=== PATIENT | female | born 1950 | race Caucasian/White ===

== ENCOUNTER → 2023-09-15 10:57 | Outpatient (REF) | payer OTHER, SELFPAY | LOC: WDC 10:57 | PROVIDERS: ATTENDING PHYSICIAN Obstetrics & Gynecology Gynecology; FAMILY PHYSICIAN Family Medicine | DX: Z12.31 Encounter for screening mammogram for malignant neoplasm of breast (principal) | CPT/HCPCS: 77063; 77067 ==

== ENCOUNTER 2024-07-24 10:36 | Emergency (ER) | payer OTHER, SELFPAY ==
[2024-07-24 10:47] VITALS: BP 161/99
[2024-07-24 11:34] VITALS: BMI 34.0
--- NOTE | 2024-07-24 13:33 | ED.GENMED ---
History of Present Illness
General
Chief Complaint: Rabies
Source: patient
Exam Limitations: none
Time Seen by Provider: 07/24/24 12:35
Nursing documentation reviewed up to this point in time: agreed with
History of Present Illness
History of Present Illness:
see MDM
Past History
Past History
ED Past Medical History: Other (The patient has had a retinal detachment )
ED Past Surgical History:
Review of Systems
Review of Systems
Allergies reviewed?: Yes
All Other Systems: Not applicable
Phy Exam
Physical Exam
Physical Exam:
GENERAL: Alert , in no apparent distress, comfortable at rest
HEAD: NCAT
NEUROLOGICAL: Alert and oriented, no focal neuro deficits, , 5/5 strength, sensation intact, ambulation normal
SKIN: Warm and dry, uncture wound L leg
MUSCULOSKELETAL: L lateral lower leg with mutiple puncture wounds, closed nontender, no surrounding erythema, largest 3 mm
PSYCH: Normal and appropriate interaction.
Course
Orders/Labs/Results
Orders:
Orders
07/24/24 13:31
Tetanus/Diphth/Acelpertussis [Adacel] 0.5 ml IM .ONCE ONE
Vital Signs
Initial and Last Documented VS:
Initial Vital Signs
Temp Pulse Resp BP Pulse Ox
36.7 C 90 16 161/99 98
07/24/24 10:47 07/24/24 10:47 07/24/24 10:47 07/24/24 10:47 07/24/24 10:47
Last Documented Vital Signs
Temp Pulse Resp BP Pulse Ox
36.7 C 90 16 161/99 98
07/24/24 10:47 07/24/24 10:47 07/24/24 10:47 07/24/24 10:47 07/24/24 10:47
MDM/Problems Addressed
Differential Diagnosis Includes:
see mdm
MDM/Problems Addressed:
Note:
CHIEF COMPLAINT(S)
Cat bite
HISTORY OF PRESENT ILLNESS
The patient is a 74-year-old female who presented after being bitten by a cat yesterday. The patient reports that the cat, a stray she has been feeding, previously appeared to have been bitten by another animal but was not directly witnessed by the
patient. This stray cat subsequently developed an infection and was taken to a dental office receptionist, where it received a rabies vaccination. approx 05/19/24. pt has been watching the cat since, and it has had no sign of rabies.
Yesterday, the patient allowed the cat indoors, intending to keep it overnight before getting it fixed. During this time, another cat the patient owns approached and growled, inciting stress in the stray. The patient bent down to inspect the
situation and was bitten on the hand by the stray cat on her L leg. The patient promptly washed the wound with soapy water multiple times and applied hydrogen peroxide and neosporin. She visited her family doctor, who prescribed an antibiotic,
likely Augmentin, which she has yet to crab picker from the pharmacy. She is unsure about her last tetanus shot and is seeking guidance regarding the need for rabies post-exposure prophylaxis.
since the incident, the cat has eaten and drank normally and had no change in behavior
The patient expressed concerns that the stray cat might display symptoms of rabies due to its unusual behavior but acknowledges that she hasnt observed any specific rabies signs such as foaming at the mouth or neurological issues. The provider
advised observing the cat for signs of rabies symptoms over the next few days and taking it to the dental office receptionist for possible quarantine if concerns about rabies persist. The provider reassured her about the low likelihood of rabies and recommended
continuing with antibiotics and updating her tetanus vaccination.
CHRONIC MEDICAL CONDITIONS SIGNIFICANTLY AFFECTING CARE
The patient does not report any chronic medical conditions and denies taking any medications regularly, including blood thinners.
PLAN
1. Administer tetanus toxoid booster in the Emergency Department.
2. Begin prescribed antibiotics (Augmentin) from family doctor.
3. Continue monitoring the stray cat for signs of rabies for the next few days. If rabies symptoms develop even after 10 days, seek medical evaluation.
4. Educate the patient to look for swelling, redness, drainage, or fever at the wound site and to return for further evaluation if these occur.
5. Assure the patient regarding low risk of rabies and instruct to follow up or seek further care if she notices any further concerns with the wound or the cats behavior.
DIFFERENTIAL DIAGNOSIS
The Differential Diagnosis includes, in no particular order and is not limited to:
1. Wound infection
2. Tetanus
3. Rabies
pt with a bite from a cat that she has been feeding daily
provoked bite
no other rabies symptoms
cat has been vaccinated for rabies 6 weeks ago
offered rabies series though this sounds like low risk exposure; pt declined; she would prefer to observe the cat for other signs
i did recommend she drop the cat off at the vet office but she said she will observe it herself.
*Critical Care Note
Total Time (30-74mins, 75-104mins- exclusive of procedures): Not Applicable
ED Attending Note
-
Portions of this chart may have been created with voice recognition software.� Occasional wrong word or��sound alike� substitutions may have occurred due to the inherent limitations of voice recognition software.
Discharge Plan
Departure
Patient Disposition: Home (Routine Discharge)
Date of Disposition: 07/24/24
Time of Disposition: 13:34
Patient with high blood pressure during this ER visit?: Yes
Condition: Fair
Covid-19: Not Applicable
Discharge Problem:
Cat bite
Instructions: Animal bites - ED discharge instructions
Prescriptions:
No Action
simvastatin 20 MG tablet
20 mg PO DAILY
Referrals:
Idris Skaggs DO [Family Provider, Family Practice]
Stand Alone Forms: Rabies Vaccine Post Exp Dosing
Activity Restrictions/Additional Instructions:
YOU WERE GIVEN TETANUS SHOT FOR THE CAT BITE
TAKE THE ANTIBIOTICS PRESCRIBED
RETURN FOR ANY ADDITIONAL CONCERNS THAT THIS CAT MAY HAVE RABIES AND THEN RECEIVE RABIES SERIES
OTHERWISE FOLLOW UP WITH YOUR DOCFTOR
Interventions
Interventions:
*Risk Screen - Suicide Last Done: 07/24/24 10:47
*Neglect/Abuse Screening Last Done: 07/24/24 10:47
*Nursing Disposition Last Done: 07/24/24 13:57
Discharge Date and Time
Discharge Date/Time: 07/24/24 13:57
Print Language: ROMANIAN
[2024-07-24] MEDS: ADACEL 0.5 ML IM (13:41)
== END 2024-07-24 13:57 | disposition home or self-care (01) ==
LOC: EMR 10:36
PROVIDERS: EMERGENCY PHYSICIAN Emergency Medicine; FAMILY PHYSICIAN Family Medicine
DX: S80.872A Other superficial bite, left lower leg, initial encounter (principal); W55.01XA Bitten by cat, initial encounter; Z23 Encounter for immunization
CPT/HCPCS: 90471; 99282; 90715

== ENCOUNTER → 2024-08-30 12:29 | Outpatient (REF) | payer OTHER, SELFPAY | LOC: RAD 12:29 | PROVIDERS: ATTENDING PHYSICIAN Family Medicine | DX: I82.411 Acute embolism and thrombosis of right femoral vein (principal) | CPT/HCPCS: 93971 ==

== ENCOUNTER → 2024-09-18 15:42 | Outpatient (REF) | payer OTHER, SELFPAY | LOC: WDC 15:42 | PROVIDERS: ATTENDING PHYSICIAN Obstetrics & Gynecology Gynecology; FAMILY PHYSICIAN Family Medicine | DX: Z12.39 Encounter for other screening for malignant neoplasm of breast (principal); Z12.31 Encounter for screening mammogram for malignant neoplasm of breast | CPT/HCPCS: 77063; 77067 ==